=== PATIENT | female | born 1985 | race Caucasian/White ===

== ENCOUNTER 2025-03-11 10:24 | Outpatient (CLI) | payer OTHER ==
--- NOTE | 2025-03-11 14:33 | RADIOLOGY REPORT ---
CLINICAL INDICATION: OTH TEAR OF LAT MENSC, CURRENT INJURY, LEFT KNEE, INIT TECHNIQUE: Multiplanar, multisequence MRI of the left knee was performed without contrast. Contrast: None. COMPARISON: None FINDINGS: Joint space and synovium: There is small knee joint effusion. No evidence of wilson's cyst or synovit is. Bones and articular cartilage: There is no evidence of acute fracture or bone marrow edema. Heterogen eous marrow signal in the distal femur and proximal tibia suggesting red marrow reconversion. The al ignment is normal. The articular cartilage is preserved in the patellofemoral compartment. There i s chondral thinning in the lateral tibial plateau. The articular cartilage in the medial compartment is preserved on both sides. Menisci: There is intrasubstance degeneration of the posterior horn of the medial meniscus without de finite tear. There is a horizontal tear of the anterior to posterior horn of the lateral meniscus. Tendons and ligaments: The tendons in the posterior knee are intact. The extensor mechanism is inta ct. The anterior cruciate ligament is intact. The posterior cruciate ligament is intact. The m edial collateral ligament and the lateral collateral ligament stabilizing complex are intact. The silver otibial band is intact. Muscles: Regional muscles are preserved in bulk and signal characteristics. Other: None. IMPRESSION: 1. Horizontal tear in the anterior to posterior horn of the lateral meniscus of the left knee. 2. Heterogeneous marrow signal in the distal femur and proximal tibia suggesting red marrow reconvers ion. HS:Y
== END 2025-03-11 23:59 | disposition home or self-care (01) ==
LOC: MRI02 10:24
PROVIDERS: ATTEND Surgery
DX: S83.282A Other tear of lateral meniscus, current injury, left knee, initial encounter (principal); S89.82XA Other specified injuries of left lower leg, initial encounter; M25.562 Pain in left knee; M25.462 Effusion, left knee; X58.XXXA Exposure to other specified factors, initial encounter; Y93.89 Activity, other specified; Y92.89 Other specified places as the place of occurrence of the external cause; Y99.8 Other external cause status
CPT/HCPCS: 73721